=== PATIENT | female | born 1975 | race Hispanic/Latino ===

== ENCOUNTER 2022-07-06 01:08 | Emergency (ER) | payer BC, MEDICAID, OTHER, SELFPAY ==
[2022-07-06] MEDS ORDERED: Silver Sulfadiazine 50 GM TUBE ONE (01:30)
[2022-07-06] MEDS ORDERED: predniSONE 20 MG TAB ONE (01:34)
[2022-07-06] MEDS ORDERED: hydrOXYzine 25 MG TAB ONE (01:35)
== END 2022-07-06 01:52 | disposition home or self-care (01) ==
LOC: NAV ERS 01:08
DX: T78.40XA Allergy, unspecified, initial encounter (principal); E03.9 Hypothyroidism, unspecified
CPT/HCPCS: 99283; J7512

== ENCOUNTER 2024-08-05 01:51 | Emergency (ER) | payer BC ==
[2024-08-05] MEDS ORDERED: Tetracaine 0.5% PF 4 ML BOT ONE (01:58)
[2024-08-05] MEDS ORDERED: Fluorescein Opthalmic Strip ONE (01:58)
[2024-08-05] MEDS ORDERED: Erythromycin Base 0.5% Ophth Oint 3.5 gm Tube ONE (02:25)
== END 2024-08-05 02:32 | disposition home or self-care (01) ==
LOC: NAV ERS 01:51
DX: S05.02XA Injury of conjunctiva and corneal abrasion without foreign body, left eye, initial encounter (principal); X58.XXXA Exposure to other specified factors, initial encounter
CPT/HCPCS: 99283